=== PATIENT | female | born 1985 | race Caucasian/White ===

== ENCOUNTER 2016-09-16 17:54 | Emergency (ER) | payer MEDICAID ==
[2016-09-16] MEDS ORDERED: Ketorolac 60 MG/2 ML SDV IM ONE (18:25)
--- NOTE | 2016-09-16 18:56 | EDM.PDOC ---
ED HPI GENERAL MEDICAL PROBLEM - General Chief Complaint: Lower Extremity Injury/Pain Stated Complaint: PAIN RT FOOT Time Seen by Provider: 09/16/16 18:00 Source of Information: Reports: Patient History Limitations: Reports: No Limitations - History of Present Illness INITIAL COMMENTS - FREE TEXT/NARRATIVE: History of present illness: [31-year-old female comes in complaining of right ankle pain. Patient has a history of an ORIF and extensive repair to the right lower extremity and indicates that her leg got caught at a desk with a drawer and she heard a snap and now it is quite painful.] Review of systems: As per history of present illness and below otherwise all systems reviewed and negative. Past medical history: As per history of present illness and as reviewed below otherwise noncontributory. Surgical history: As per history of present illness and as reviewed below otherwise noncontributory. Social history: No reported history of drug or alcohol abuse. Family history: As per history of present illness and as reviewed below otherwise noncontributory. Physical exam: HEENT: Atraumatic, normocephalic, pupils reactive, negative for conjunctival pallor or scleral icterus, mucous membranes moist, throat clear, neck supple, nontender, trachea midline. Lungs: Clear to auscultation, breath sounds equal bilaterally, chest nontender. Heart: S1S2, regular, negative for clicks, rubs, or JVD. Abdomen: Soft, nondistended, nontender. Negative for masses or hepatosplenomegaly. Negative for costovertebral tenderness. Pelvis: Stable nontender. Genitourinary: Deferred. Rectal: Deferred. Extremities: Right lower extremity with well-healed incisions and an Bashir wrap with point tenderness about the bilateral malleolus as well as the dorsal aspect of the foot, negative for cords or calf pain. Neurovascular unremarkable. Neuro: Awake, alert, oriented. Cranial nerves II through XII unremarkable. Cerebellum unremarkable. Motor and sensory unremarkable throughout. Exam nonfocal. Diagnostics: [X-ray right ankle] Therapeutics: [Toradol 60 mg IM] Impression: [Acute on chronic trauma to right lower extremity] Plan: [Follow-up with Dr. Singleton and in am] Definitive disposition and diagnosis as appropriate pending reevaluation and review of above. Right Ankle Pain Score (Numeric/FACES): 10 - Related Data Allergies Allergy/AdvReac Type Severity Reaction Status Date / Time butalbital Allergy chest pain Verified 09/16/16 18:11 and SOB tramadol Allergy chest pain Verified 09/16/16 18:11 and SOB watermelon Allergy Hives Verified 09/16/16 18:11 Home Meds: Home Meds Baclofen 10 tbs PO Q8HR 09/22/15 [History] Gabapentin [Neurontin] 300 cap PO Q8HR 09/22/15 [History] oxyCODONE HCl/Acetaminophen [oxyCODONE-Acetaminophen 5-325] 10 mg PO ASDIRECTED PRN 09/22/15 [History] Past Medical History - Past Health History Medical/Surgical History: Denies Medical/Surgical History HEENT History: Reports: None Cardiovascular History: Reports: None Respiratory History: Reports: Asthma Gastrointestinal History: Reports: None Genitourinary History: Reports: None [employer] 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 Musculoskeletal History: Reports: Fracture Neurological History: Reports: None Psychiatric History: Reports: None Endocrine/Metabolic History: Reports: None Hematologic History: Reports: None Oncologic (Cancer) History: Reports: None Dermatologic History: Reports: None - Infectious Disease History Infectious Disease History: Reports: Chicken Pox - Past Surgical History GI Surgical History: Reports: Cholecystectomy Musculoskeletal Surgical History: Reports: Other (See Below) Other Musculoskeletal Surgeries/Procedures:: right ankle surgery Dermatological Surgical History: Reports: Skin Graft Social & Family History - Family History Family Medical History: Noncontributory - Tobacco Use Smoking Status *Q: Never Smoker Second Hand Smoke Exposure: No - Caffeine Use Caffeine Use: Reports: Coffee - Recreational Drug Use Recreational Drug Use: No Review of Systems - Review of Systems Review Of Systems: See Below (History of present illness) ED EXAM, GENERAL - Physical Exam Exam: See Below (The history of present illness) Course - Vital Signs Last Recorded V/S: Last Vital Signs Temp 36.4 C 09/16/16 18:12 Pulse 82 09/16/16 18:12 Resp 16 09/16/16 18:12 BP 120/60 09/16/16 18:12 Pulse Ox 99 09/16/16 18:12 - Orders/Labs/Meds Orders: Active Orders 24 hr Category Date Time Status Ankle Min 3V Rt [CR] Stat Exams 09/16/16 18:25 Taken AMYLASE [CHEM] Stat Lab 09/16/16 20:46 Received COMPREHENSIVE METABOLIC PN,CMP [CHEM] Stat Lab 09/16/16 20:46 Received LIPASE [CHEM] Stat Lab 09/16/16 20:46 Received Sodium Chloride 0.9% [Normal Saline] 1,000 ml Med 09/16/16 20:04 Active IV STAT Medication Orders Sodium Chloride (Normal Saline) 1,000 mls @ 999 mls/hr IV STAT ONE Stop: 09/16/16 21:04 Last Admin: 09/16/16 20:44 Dose: 999 mls/hr Labs: Laboratory Tests 09/16/16 Range/Units 20:46 WBC 8.16 (4.0-11.0) K/uL RBC 4.83 (4.30-5.90) M/uL Hgb 12.0 (12.0-16.0) g/dL Hct 38.0 (36.0-46.0) % MCV 78.7 L (80.0-98.0) fL MCH 24.8 L (27.0-32.0) pg MCHC 31.6 (31.0-37.0) g/dL RDW Std Deviation 44.8 (28.0-62.0) fl RDW Coeff of Delvis 16 H (11.0-15.0) % Plt Count 295 (150-400) K/uL MPV 9.70 (7.40-12.00) fL Neut % (Auto) 51.2 (48.0-80.0) % Lymph % (Auto) 39.3 (16.0-40.0) % [place] % (Auto) 8.1 (0.0-15.0) % Eos % (Auto) 0.9 (0.0-7.0) % Baso % (Auto) 0.5 (0.0-1.5) % Neut # (Auto) 4.2 (1.4-5.7) K/uL Lymph # (Auto) 3.2 H (0.6-2.4) K/uL [place] # (Auto) 0.7 (0.0-0.8) K/uL Eos # (Auto) 0.1 (0.0-0.7) K/uL Baso # (Auto) 0.0 (0.0-0.1) K/uL Nucleated RBC % 0.0 /100WBC Nucleated RBCs # 0 K/uL Meds: Medications Generic Name Dose Route Start Last Admin Trade Name Freq PRN Reason Stop Dose Admin Sodium Chloride 1,000 mls @ 999 mls/hr 09/16/16 20:04 09/16/16 20:44 Normal Saline IV 09/16/16 21:04 999 mls/hr STAT ONE Administration Discontinued Medications Generic Name Dose Route Start Last Admin Trade Name Freq PRN Reason Stop Dose Admin Ketorolac Tromethamine 60 mg 09/16/16 18:25 09/16/16 18:45 Toradol IM 09/16/16 18:26 60 mg ONETIME ONE Administration Ketorolac Tromethamine 30 mg 09/16/16 20:04 09/16/16 20:45 Toradol IVPUSH 09/16/16 20:05 30 mg ONETIME ONE Administration Ondansetron HCl 4 mg 09/16/16 20:04 09/16/16 20:43 Zofran IVPUSH 09/16/16 20:05 4 mg ONETIME ONE Administration Departure - Departure Time of Disposition: 21:01 Disposition: Home, Self-Care 01 Condition: Good Clinical Impression: Chronic wound of extremity, Ankle pain - Discharge Information Forms: ED Department Discharge Additional Instructions: The following information is given to patients seen in the emergency department who are being discharged to home. This information is to outline your options for follow-up care. We provide all patients seen in our emergency department with a follow-up referral. The need for follow-up, as well as the timing and circumstances, are variable depending upon the specifics of your emergency department visit. If you don't have a primary care physician on staff, we will provide you with a referral. We always advise you to contact your personal physician following an emergency department visit to inform them of the circumstance of the visit and for follow-up with them and/or the need for any referrals to a consulting specialist. The emergency department will also refer you to a specialist when appropriate. This referral assures that you have the opportunity for follow-up care with a specialist. All of these measure are taken in an effort to provide you with optimal care, which includes your follow-up. Under all circumstances we always encourage you to contact your private physician who remains a resource for coordinating your care. When calling for follow-up care, please make the office aware that this follow-up is from your recent emergency room visit. If for any reason you are refused follow-up, please contact the [facility] Emergency Department at and asked to speak to the emergency department charge nurse. It is imperative you follow-up with Dr. Singleton to get further in-depth diagnostic and evaluation of your chronic right lower extremity issues You are being provided with a running of pain medication today to hold you over until he can be seen by Dr. Singleton Please return to ED as needed as discussed - My Orders Last 24 Hours: My Active Orders 09/16/16 18:25 Ankle Min 3V Rt [CR] Stat 09/16/16 20:04 Sodium Chloride 0.9% [Normal Saline] 1,000 ml IV STAT 09/16/16 20:46 AMYLASE [CHEM] Stat COMPREHENSIVE METABOLIC PN,CMP [CHEM] Stat LIPASE [CHEM] Stat - Assessment/Plan Last 24 Hours: My Active Orders 09/16/16 18:25 Ankle Min 3V Rt [CR] Stat 09/16/16 20:04 Sodium Chloride 0.9% [Normal Saline] 1,000 ml IV STAT 09/16/16 20:46 AMYLASE [CHEM] Stat COMPREHENSIVE METABOLIC PN,CMP [CHEM] Stat LIPASE [CHEM] Stat
[2016-09-16] MEDS ORDERED: Sodium Chloride 0.9% 1,000 ML IV ONE (20:04)
[2016-09-16] MEDS ORDERED: Ondansetron 4 MG/2 ML SDV IVPUSH ONE (20:04)
[2016-09-16] MEDS ORDERED: Ketorolac 30 MG/ML SDV IVPUSH ONE (20:04)
[2016-09-16 21:19] LABS: CHLORIDE,CL 103 mmol/L (98-110); SODIUM,NA 137 mmol/L (136-146)
[2016-09-16 21:32] VITALS: BP 131/61
--- NOTE | 2016-09-17 08:41 | CR ---
EXAM DATE: 09/16/16 PATIENT'S AGE: 31 Patient: JOSE LUIS GIBSON Facility: [place], [place] Site . Site : 1985 Study: XRay Extremity Right [id number]/7/2017 7:02:45 PM Ordering Physician: Doctor Corey Final Report: Indication: Pain. Technique: Three-view right ankle. Comparison: None. Findings: The patient has a supportive wrap around the distal leg and forefoot. There is a fracture deformity of the distal fibular diaphysis. There is an incompletely healed complex comminuted fracture within the distal tibial metaphysis. There are mixed areas of sclerosis and lucent change which could indicate potential osteomyelitis. On the lateral projection there are lucent holes suggesting a prior surgical screw tracks. The talus and calcaneus appear intact. There is a small plantar calcaneal bone spur. There are changes noted about the medial aspect of the lower leg which may indicate areas of soft tissue ulceration. Impression: Deformity of the distal fibula and tibia consistent with old fractures. Comminuted fragments remain and there are mixed areas of sclerosis and lucent change which could indicate potential osteomyelitis. Patient also appears to have an open wound within the medial soft tissues. Dictated by Jeronimo Oviedo MD @ Sep 16 2016 7:50PM (Electronic Signature) Report Signed by Proxy. LIUDMILA
== END 2016-09-16 21:42 | disposition home or self-care (01) ==
LOC: MW.ED 17:54
DX: M25.572 Pain in left ankle and joints of left foot (principal); J45.909 Unspecified asthma, uncomplicated; Z88.5 Allergy status to narcotic agent; Z91.048 Other nonmedicinal substance allergy status; Z90.49 Acquired absence of other specified parts of digestive tract
CPT/HCPCS: 36415; 73610; 80053; 82150; 83690; 85025; 96361; 96372; 96374; 99284; J1885; J2405; J7040

== ENCOUNTER 2017-07-18 05:01 | Inpatient (IN) | payer MEDICAID ==
[2017-07-18] MEDS ORDERED: Sodium Chloride 0.9% 10 ML Syringe FLUSH PRN (05:21)
[2017-07-18] MEDS ORDERED: Sodium Chloride 0.9% 2.5 ML Syringe FLUSH PRN (05:21)
[2017-07-18] MEDS ORDERED: Tranexamic Acid 1,000 MG in Sodium Chloride 0.9% 100 ML IV PRN (05:21)
[2017-07-18] MEDS ORDERED: Lidocaine 1% 50 ML MDV INJECT PRN (05:21)
[2017-07-18] MEDS ORDERED: Methylergonovine 0.2 MG/1 ML Amp IM PRN (05:21)
[2017-07-18] MEDS ORDERED: Carboprost Tromethamine 250 MCG/1 ML Amp IM PRN (05:21)
[2017-07-18] MEDS ORDERED: Nalbuphine 10 MG/1 ML Vial IVPUSH PRN (05:21)
[2017-07-18] MEDS ORDERED: Water For Irrigation,Sterile 1,000 ML Container IRR PRN (05:21)
[2017-07-18] MEDS ORDERED: Misoprostol 200 MCG Tab PO PRN (05:21)
[2017-07-18] MEDS ORDERED: Terbutaline 1 MG/ML SDV SUBCUT PRN (05:24)
[2017-07-18] MEDS ORDERED: Oxytocin/0.9 % Sodium Chloride 30 UNIT/500 ML BAG IV SCH (05:30)
[2017-07-18] MEDS: Lactated Ringers 1,000 ML IV SCH ×3 (06:30→21:30)
--- NOTE | 2017-07-18 11:11 | PCM.LDHP ---
L&D History of Present Illness - General Date of Service: 07/18/17 Admit Problem/Dx: Patient Status Order with Admit Dx/Problem 07/18/17 05:21 Patient Status [ADT] Routine Admission Diagnosis/Problem Admission Diagnosis/Problem 07/18/17 11:05 32yo EDC 07/25/2017 39 0/7wks, B+, RE, GBS neg. Elective IOL 07/18/17 11:07 Source of Information: Patient History Limitations: Reports: No Limitations - History of Present Illness Improves with: Reports: None Worsens with: Reports: None Associated Symptoms: Reports: N - Related Data Allergies/Adverse Reactions: Allergies Allergy/AdvReac Type Severity Reaction Status Date / Time butalbital Allergy chest pain Verified 06/29/17 14:40 and SOB tramadol Allergy chest pain Verified 06/29/17 14:40 and SOB watermelon Allergy Hives Verified 06/29/17 14:40 Home Medications: Home Meds PNV95/Ferrous Fumarate/FA [ Tablet] 1 tab PO DAILY 05/25/17 [History] Acetaminophen [Tylenol] 325 mg PO Q4H PRN 06/29/17 [History] Past Medical History - Past Health History Medical/Surgical History: Denies Medical/Surgical History HEENT History: Reports: None Cardiovascular History: Reports: None Respiratory History: Reports: Asthma Gastrointestinal History: Reports: Cholelithiasis Genitourinary History: Reports: None 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: Musculoskeletal History: Reports: Fracture Neurological History: Reports: Concussion, Migraines Psychiatric History: Reports: Anxiety, Depression Endocrine/Metabolic History: Reports: Obesity/BMI 30+ Hematologic History: Reports: None Immunologic History: Reports: None Oncologic (Cancer) History: Reports: None Dermatologic History: Reports: None - Infectious Disease History Infectious Disease History: Reports: Chicken Pox - Past Surgical History GI Surgical History: Reports: Cholecystectomy Musculoskeletal Surgical History: Reports: ORIF, Other (See Below) Other Musculoskeletal Surgeries/Procedures:: right ankle surgery Dermatological Surgical History: Reports: Skin Graft Social & Family History - Family History Family Medical History: Noncontributory HEENT: Reports: Other (See Below) Other HEENT Family History: grandmother had surgery on eye for unkown reason Cardiac: Reports: High Cholesterol, Hypertension Respiratory: Reports: None GI: Reports: None : Reports: None OBGYN: Reports: Ectopic , Musculoskeletal: Reports: Arthritis, Fibromyalgia Neurological: Reports: Alzheimers Disease, Migraines Psychiatric: Reports: None Endocrine/Metabolic: Reports: Diabetes, Type I Hematologic: Reports: None Immunologic: Reports: None Dermatologic: Reports: None Oncologic: Reports: Cervix - Tobacco Use Smoking Status *Q: Never Smoker Second Hand Smoke Exposure: Yes - Caffeine Use Caffeine Use: Reports: None - Recreational Drug Use Recreational Drug Use: No H&P Review of Systems - Review of Systems: Review Of Systems: See Below General: Reports: No Symptoms HEENT: Reports: No Symptoms Pulmonary: Reports: No Symptoms Cardiovascular: Reports: No Symptoms Gastrointestinal: Reports: No Symptoms Genitourinary: Reports: No Symptoms Musculoskeletal: Reports: No Symptoms Skin: Reports: No Symptoms Psychiatric: Reports: No Symptoms Neurological: Reports: No Symptoms Hematologic/Lymphatic: Reports: No Symptoms Immunologic: Reports: No Symptoms L&D Exam - Exam Exam: See Below - Vital Signs Weight: 127.006 kg - OB Specific Contraction Intensity: Mild to Moderate Movement: Active Heart Tones: Present Heart Tones per Min: 125 Heart Rate (FHR) Variability: Moderate (6-25 bmp) Presentation: Vertex - Shepard Score Shepard Score Cervix Position: Midposition Shepard Score Consistency: Soft Shepard Score Effacement: 51-70% Shepard Score Dilation: 3-4 cm Shepard Score 's Station: -2 Shepard Score Total: 8 - Exam General: Alert, Oriented HEENT: Hearing Intact Lungs: Clear to Auscultation, Normal Respiratory Effort Cardiovascular: Regular Rate, Regular Rhythm, Normal S1, Normal S2 GI/Abdominal Exam: Normal Bowel Sounds, Soft, Non-Tender, No Organomegaly, No Distention, No Abnormal Bruit, No Mass, Pelvis Stable Rectal Exam: Deferred Genitourinary: Cervical dilitation Back Exam: Normal Inspection, Full Range of Motion Extremities: Normal Inspection, Normal Range of Motion, Non-Tender, No Pedal Edema, Normal Capillary Refill Skin: Warm, Dry, Intact Neurological: Cranial Nerves Intact, Reflexes Equal Bilateral, Strength Equal Bilateral, Normal Gait, Normal Speech, Normal Tone Psychiatric: Alert, Normal Affect, Normal Mood - Patient Data Lab Results Last 24 hrs: Laboratory Results - last 24 hr 07/18/17 07/18/17 Range/Units 06:09 06:09 WBC 8.58 (4.0-11.0) K/uL RBC 4.42 (4.30-5.90) M/uL Hgb 10.3 L (12.0-16.0) g/dL Hct 31.8 L (36.0-46.0) % MCV 71.9 L (80.0-98.0) fL MCH 23.3 L (27.0-32.0) pg MCHC 32.4 (31.0-37.0) g/dL RDW Std Deviation 39.5 (28.0-62.0) fl RDW Coeff of Delvis 15 (11.0-15.0) % Plt Count 273 (150-400) K/uL MPV 10.10 (7.40-12.00) fL Nucleated RBC % 0.0 /100WBC Nucleated RBCs # 0 K/uL Blood Type B POSITIVE Antibody Screen NEGATIVE Result Diagrams: 07/18/17 06:09 - Problem List (1) Supervision of normal IUP (intrauterine ) in multigravida SNOMED Code(s): 072088016, 270886526, 109717022 ICD Code: Z34.80 - ENCOUNTER FOR SUPRVSN OF NORMAL , UNSP TRIMESTER Status: Acute Current Visit: Yes Qualifiers: Trimester: third trimester Qualified Code(s): Z34.83 - Encounter for supervision of other normal , third trimester Problem List Initiated/Reviewed/Updated: Yes Orders Last 24hrs: Active Orders 24 hr Category Date Time Status Patient Status [ADT] Routine ADT 07/18/17 05:21 Active Bedrest Bathroom Privileges [RC] ASDIRECTED Care 07/18/17 05:25 Active Communication Order [RC] ASDIRECTED Care 07/18/17 05:25 Active Communication Order [RC] ASDIRECTED Care 07/18/17 05:25 Active Heart Tones [RC] CONTINUOUS Care 07/18/17 05:21 Active Non Stress Test [RC] PER UNIT ROUTINE Care 07/18/17 05:21 Active May Shower [RC] ASDIRECTED Care 07/18/17 05:21 Active Notify Provider [RC] PRN Care 07/18/17 05:21 Active Notify Provider [RC] PRN Care 07/18/17 05:25 Active Notify Provider [RC] STAT Care 07/18/17 05:25 Active Oxygen Therapy [RC] ASDIRECTED Care 07/18/17 05:25 Active Up ad Leatha [RC] ASDIRECTED Care 07/18/17 05:21 Active Vaginal Exam [RC] PRN Care 07/18/17 05:21 Active Vaginal Exam [RC] PRN Care 07/18/17 05:25 Active Vital Signs [RC] PER UNIT ROUTINE Care 07/18/17 05:21 Active Vital Signs [RC] PER UNIT ROUTINE Care 07/18/17 05:25 Active Regular Diet [DIET] Diet 07/18/17 Breakfast Active Carboprost Tromethamine [Hemabate DS] Med 07/18/17 05:21 Active 250 mcg IM ASDIRECTED PRN Lactated Ringers [Ringers, Lactated] 1,000 ml Med 07/18/17 05:30 Active IV ASDIRECTED Lidocaine 1% [Xylocaine 1%] Med 07/18/17 05:21 Active 50 ml INJECT .ONCE PRN Methylergonovine [Methergine] Med 07/18/17 05:21 Active 0.2 mg IM ASDIRECTED PRN Misoprostol [Cytotec] Med 07/18/17 05:21 Active 200 mcg PO .ONCE PRN Nalbuphine [Nubain] Med 07/18/17 05:21 Active 10 mg IVPUSH Q1H PRN Oxytocin/0.9 % Sodium Chloride [Oxytocin 30 Unit/500 ML Med 07/18/17 05:30 Active -NS] 30 unit in 500 ml IV TITRATE Sodium Chloride 0.9% [Saline Flush] Med 07/18/17 05:21 Active 10 ml FLUSH ASDIRECTED PRN Sodium Chloride 0.9% [Saline Flush] Med 07/18/17 05:21 Active 2.5 ml FLUSH ASDIRECTED PRN Terbutaline [Brethine] Med 07/18/17 05:24 Active 0.25 mg SUBCUT ASDIRECTED PRN Tranexamic Acid [Cyklokapron] 1,000 mg Med 07/18/17 05:21 Active Sodium Chloride 0.9% [Normal Saline] 100 ml IV ONETIME Water For Irrigation,Sterile [Sterile Water for Med 07/18/17 05:21 Active Irrigation] 1,000 ml IRR ASDIRECTED PRN Scalp Electrode [WOMSER] Per Unit Routine Oth 07/18/17 05:21 Ordered Medication Administration Instruction [OM.PC] Q3H Oth 07/18/17 05:30 Ordered Peripheral IV Insertion Adult [OM.PC] Routine Oth 07/18/17 05:21 Ordered Resuscitation Status Routine Resus Stat 07/18/17 05:21 Ordered Medication Orders Carboprost Tromethamine (Hemabate Ds) 250 mcg IM ASDIRECTED PRN PRN Reason: Post Hemorrhage Lactated Ringer's (Ringers, Lactated) 1,000 mls @ 150 mls/hr IV ASDIRECTED RONNY Last Admin: 07/18/17 06:30 Dose: 150 mls/hr Tranexamic Acid 1,000 mg/ (Sodium Chloride) 110 mls @ 660 mls/hr IV ONETIME PRN PRN Reason: Bleeding Oxytocin/Sodium Chloride (Oxytocin 30 Unit/500 Ml-Ns) 30 unit in 500 mls @ 2 mls/hr IV TITRATE RONNY; Protocol Last Titration: 07/18/17 08:10 Dose: 6 munits/min, 6 mls/hr Titration: 07/18/17 07:42 Dose: 4 munits/min, 4 mls/hr Admin: 07/18/17 06:51 Dose: 2 munits/min, 2 mls/hr Lidocaine HCl (Xylocaine 1%) 50 ml INJECT .ONCE PRN PRN Reason: Laceration repair Methylergonovine Maleate (Methergine) 0.2 mg IM ASDIRECTED PRN PRN Reason: Post Hemorrhage Misoprostol (Cytotec) 200 mcg PO .ONCE PRN PRN Reason: Post Hemorrhage Nalbuphine HCl (Nubain) 10 mg IVPUSH Q1H PRN PRN Reason: Pain (severe 7-10) Sodium Chloride (Saline Flush) 10 ml FLUSH ASDIRECTED PRN PRN Reason: Keep Vein Open Sodium Chloride (Saline Flush) 2.5 ml FLUSH ASDIRECTED PRN PRN Reason: Keep Vein Open Sterile Water (Sterile Water For Irrigation) 1,000 ml IRR ASDIRECTED PRN PRN Reason: delivery Terbutaline Sulfate (Brethine) 0.25 mg SUBCUT ASDIRECTED PRN PRN Reason: Tacysystole Assessment/Plan Comment:: IOL A: 32yo EDC 07/25/2017 39 0/7wks, B+, RE, GBS neg. Elective IOL P: Admit, pain mngt prn, anticipate
[2017-07-18] MEDS: Nalbuphine 10 MG/ML 10 ML MDV ONE (11:51)
[2017-07-18] MEDS ORDERED: Ondansetron 4 MG/2 ML SDV IVPUSH ONE (16:59)
[2017-07-18] MEDS ORDERED: Ranitidine 15 MG/ML Syrup 10 ML UD Cup PO ONE (17:00)
[2017-07-18] MEDS ORDERED: fentaNYL 100 MCG/2 ML SDV ONE (20:10)
--- NOTE | 2017-07-18 21:03 | PCM.PREANE ---
Preanesthetic Assessment - Anesthesia/Transfusion/Family Hx Anesthesia History: Prior Anesthesia Without Reaction Family History of Anesthesia Reaction: No Transfusion History: No Prior Transfusion(s) - Review of Systems General: No Symptoms Pulmonary: No Symptoms Cardiovascular: No Symptoms Gastrointestinal: No Symptoms Neurological: No Symptoms Other: Reports: None (Denies any personal or family hx of bleeding or clotting problems) - Physical Assessment Height: 1.6 m Weight: 127.006 kg ASA Class: 2 Mental Status: Alert & Oriented x3 Airway Class: Mallampati = 3 Dentition: Reports: Normal Dentition ROM/Head Extension: Full - Lab Values: Laboratory Last Values WBC 8.58 K/uL (4.0-11.0) 07/18/17 06:09 RBC 4.42 M/uL (4.30-5.90) 07/18/17 06:09 Hgb 10.3 g/dL (12.0-16.0) L 07/18/17 06:09 Hct 31.8 % (36.0-46.0) L 07/18/17 06:09 MCV 71.9 fL (80.0-98.0) L 07/18/17 06:09 MCH 23.3 pg (27.0-32.0) L 07/18/17 06:09 MCHC 32.4 g/dL (31.0-37.0) 07/18/17 06:09 RDW Std Deviation 39.5 fl (28.0-62.0) 07/18/17 06:09 RDW Coeff of Delvis 15 % (11.0-15.0) 07/18/17 06:09 Plt Count 273 K/uL (150-400) 07/18/17 06:09 MPV 10.10 fL (7.40-12.00) 07/18/17 06:09 Nucleated RBC % 0.0 /100WBC 07/18/17 06:09 Nucleated RBCs # 0 K/uL 07/18/17 06:09 Blood Type B POSITIVE 07/18/17 06:09 Antibody Screen NEGATIVE 07/18/17 06:09 - Allergies Allergies/Adverse Reactions: Allergies Allergy/AdvReac Type Severity Reaction Status Date / Time butalbital Allergy chest pain Verified 06/29/17 14:40 and SOB tramadol Allergy chest pain Verified 06/29/17 14:40 and SOB watermelon Allergy Hives Verified 06/29/17 14:40 - Acknowledgements Anesthesia Type Planned: Epidural Pt an Appropriate Candidate for the Planned Anesthesia: Yes Alternatives and Risks of Anesthesia Discussed w Pt/Guardian: Yes Pt/Guardian Understands and Agrees with Anesthesia Plan: Yes PreAnesthesia Questionnaire - Past Health History Medical/Surgical History: Denies Medical/Surgical History HEENT History: Reports: None Cardiovascular History: Reports: None Respiratory History: Reports: Asthma (Has not used inhaler since prior to ) Gastrointestinal History: Reports: Cholelithiasis Genitourinary History: Reports: None RIGGER History: Reports: Musculoskeletal History: Reports: Fracture Neurological History: Reports: Concussion, Migraines Psychiatric History: Reports: Anxiety, Depression Endocrine/Metabolic History: Reports: Obesity/BMI 30+ Hematologic History: Reports: None Immunologic History: Reports: None Oncologic (Cancer) History: Reports: None Dermatologic History: Reports: None - Infectious Disease History Infectious Disease History: Reports: Chicken Pox - Past Surgical History GI Surgical History: Reports: Cholecystectomy Musculoskeletal Surgical History: Reports: ORIF, Other (See Below) Other Musculoskeletal Surgeries/Procedures:: right ankle surgery Dermatological Surgical History: Reports: Skin Graft - SUBSTANCE USE Smoking Status *Q: Never Smoker Second Hand Smoke Exposure: Yes Recreational Drug Use History: No - HOME MEDS Home Medications: Home Meds PNV95/Ferrous Fumarate/FA [ Tablet] 1 tab PO DAILY 05/25/17 [History] Acetaminophen [Tylenol] 325 mg PO Q4H PRN 06/29/17 [History] - CURRENT (IN HOUSE) MEDS Current Meds: Current Medications Carboprost Tromethamine (Hemabate Ds) 250 mcg IM ASDIRECTED PRN PRN Reason: Post Hemorrhage Lactated Ringer's (Ringers, Lactated) 1,000 mls @ 150 mls/hr IV ASDIRECTED RONNY Last Admin: 07/18/17 19:38 Dose: 150 mls/hr Tranexamic Acid 1,000 mg/ (Sodium Chloride) 110 mls @ 660 mls/hr IV ONETIME PRN PRN Reason: Bleeding Oxytocin/Sodium Chloride (Oxytocin 30 Unit/500 Ml-Ns) 30 unit in 500 mls @ 2 mls/hr IV TITRATE RONNY; Protocol Last Titration: 07/18/17 13:58 Dose: 20 munits/min, 20 mls/hr Lidocaine HCl (Xylocaine 1%) 50 ml INJECT .ONCE PRN PRN Reason: Laceration repair Methylergonovine Maleate (Methergine) 0.2 mg IM ASDIRECTED PRN PRN Reason: Post Hemorrhage Misoprostol (Cytotec) 200 mcg PO .ONCE PRN PRN Reason: Post Hemorrhage Nalbuphine HCl (Nubain) 10 mg IVPUSH Q1H PRN PRN Reason: Pain (severe 7-10) Last Admin: 07/18/17 14:30 Dose: 10 mg Sodium Chloride (Saline Flush) 10 ml FLUSH ASDIRECTED PRN PRN Reason: Keep Vein Open Sodium Chloride (Saline Flush) 2.5 ml FLUSH ASDIRECTED PRN PRN Reason: Keep Vein Open Sterile Water (Sterile Water For Irrigation) 1,000 ml IRR ASDIRECTED PRN PRN Reason: delivery Terbutaline Sulfate (Brethine) 0.25 mg SUBCUT ASDIRECTED PRN PRN Reason: Tacysystole Discontinued Medications Fentanyl (Sublimaze) Confirm Administered Dose 100 mcg .ROUTE .STK-MED ONE Stop: 07/18/17 20:11 Fentanyl/Bupivacaine HCl (Frasuage-Xeojs-Js 2 Mcg/Ml-0.125%) Confirm Administered Dose 100 mls @ as directed EP .STK-MED ONE Stop: 07/18/17 20:10 Nalbuphine HCl (Nubain) Confirm Administered Dose 100 mg .ROUTE .STK-MED ONE Stop: 07/18/17 11:48 Last Admin: 07/18/17 11:51 Dose: 10 mg Ondansetron HCl (Zofran) 4 mg IVPUSH ONETIME ONE Stop: 07/18/17 17:00 Last Admin: 07/18/17 17:37 Dose: 4 mg Ranitidine HCl (Zantac) 150 mg PO ONETIME ONE Stop: 07/18/17 17:01 Last Admin: 07/18/17 17:48 Dose: 150 mg
[2017-07-19] MEDS ORDERED: fentaNYL 100 MCG/2 ML SDV ONE ×2 (03:22→07:51)
[2017-07-19] MEDS ORDERED: Bupivacaine 0.5% 10 ML SDV ONE ×2 (03:22→07:51)
[2017-07-19] MEDS: Lactated Ringers 1,000 ML IV SCH (07:41)
--- NOTE | 2017-07-19 11:22 | PCM.DEL ---
L & D Note - General Info Date of Service: 07/19/17 Mother's Due Date: 07/25/17 - Delivery Note Labor: Augmented by ARM, Induced by Oxytocin Cervical Ripening Method: Misoprostil Delivery Outcome: Livebirth Delivery Method: Spontaneous Vaginal Delivery-Single Presentation: Left Occiput Anterior (NISHANT) Nuchal Cord: None Prep: Other Anesthesia Type: Epidural Amniotic Fluid Description: Bloody Episiotomy Type: None Laceration: None Placenta: Intact, Spontaneous Cord: 3 Vessels Resuscitation Needed: No [place]: Suctioned, Stimulated, [place] Used Score 1 min: 8 Score 5 min: 9 Second Stage Interventions: Reports: Pushing Effectively, Pushing, McRobert's Position - General Info Date of Service: 07/19/17 - Patient Data Weight - Most Recent: 127.006 kg Med Orders - Current: Current Medications Carboprost Tromethamine (Hemabate Ds) 250 mcg IM ASDIRECTED PRN PRN Reason: Post Hemorrhage Lactated Ringer's (Ringers, Lactated) 1,000 mls @ 150 mls/hr IV ASDIRECTED RONNY Last Admin: 07/19/17 07:41 Dose: 150 mls/hr Tranexamic Acid 1,000 mg/ (Sodium Chloride) 110 mls @ 660 mls/hr IV ONETIME PRN PRN Reason: Bleeding Oxytocin/Sodium Chloride (Oxytocin 30 Unit/500 Ml-Ns) 30 unit in 500 mls @ 2 mls/hr IV TITRATE RONNY; Protocol Last Titration: 07/19/17 10:33 Dose: 12 munits/min, 12 mls/hr Lidocaine HCl (Xylocaine 1%) 50 ml INJECT .ONCE PRN PRN Reason: Laceration repair Methylergonovine Maleate (Methergine) 0.2 mg IM ASDIRECTED PRN PRN Reason: Post Hemorrhage Misoprostol (Cytotec) 200 mcg PO .ONCE PRN PRN Reason: Post Hemorrhage Nalbuphine HCl (Nubain) 10 mg IVPUSH Q1H PRN PRN Reason: Pain (severe 7-10) Last Admin: 07/18/17 14:30 Dose: 10 mg Sodium Chloride (Saline Flush) 10 ml FLUSH ASDIRECTED PRN PRN Reason: Keep Vein Open Sodium Chloride (Saline Flush) 2.5 ml FLUSH ASDIRECTED PRN PRN Reason: Keep Vein Open Sterile Water (Sterile Water For Irrigation) 1,000 ml IRR ASDIRECTED PRN PRN Reason: delivery Terbutaline Sulfate (Brethine) 0.25 mg SUBCUT ASDIRECTED PRN PRN Reason: Tacysystole Discontinued Medications Bupivacaine HCl (Sensorcaine-Mpf 0.5%) Confirm Administered Dose 10 ml .ROUTE .STK-MED ONE Stop: 07/19/17 03:23 Bupivacaine HCl (Sensorcaine-Mpf 0.5%) Confirm Administered Dose 10 ml .ROUTE .STK-MED ONE Stop: 07/19/17 07:52 Fentanyl (Sublimaze) Confirm Administered Dose 100 mcg .ROUTE .STK-MED ONE Stop: 07/18/17 20:11 Fentanyl (Sublimaze) Confirm Administered Dose 100 mcg .ROUTE .STK-MED ONE Stop: 07/19/17 03:23 Fentanyl (Sublimaze) Confirm Administered Dose 100 mcg .ROUTE .STK-MED ONE Stop: 07/19/17 07:52 Fentanyl/Bupivacaine HCl (Mpntkaar-Hhdzg-Mb 2 Mcg/Ml-0.125%) Confirm Administered Dose 100 mls @ as directed EP .STK-MED ONE Stop: 07/18/17 20:10 Fentanyl/Bupivacaine HCl (Lwyictur-Nccbk-Ey 2 Mcg/Ml-0.125%) Confirm Administered Dose 100 mls @ as directed EP .STK-MED ONE Stop: 07/19/17 03:22 Nalbuphine HCl (Nubain) Confirm Administered Dose 100 mg .ROUTE .STK-MED ONE Stop: 07/18/17 11:48 Last Admin: 07/18/17 11:51 Dose: 10 mg Ondansetron HCl (Zofran) 4 mg IVPUSH ONETIME ONE Stop: 07/18/17 17:00 Last Admin: 07/18/17 17:37 Dose: 4 mg Ranitidine HCl (Zantac) 150 mg PO ONETIME ONE Stop: 07/18/17 17:01 Last Admin: 07/18/17 17:48 Dose: 150 mg - Problem List Review Problem List Initiated/Reviewed/Updated: Yes - Plan Plan:: IOL A: 32yo EDC 07/25/2017 39 0/7wks, B+, RE, GBS neg. Elective IOL P: Admit, pain mngt prn, anticipate
[2017-07-19] MEDS ORDERED: Docusate Sodium 100 MG Cap PO PRN (11:25)
[2017-07-19] MEDS ORDERED: Ibuprofen 400 MG Tab PO PRN (11:25)
[2017-07-19] MEDS ORDERED: Benzocaine/Menthol 20%-0.5% Spray 78 GM Cannister TOP PRN (11:25)
[2017-07-19] MEDS ORDERED: Acetaminophen 500 MG Tab PO PRN (11:25)
[2017-07-19] MEDS ORDERED: Lanolin 100% Cream 7 GM Tube TOP PRN (11:25)
[2017-07-19] MEDS ORDERED: Bisacodyl 10 MG Supp RECTAL PRN (11:25)
[2017-07-19] MEDS ORDERED: oxyCODONE 5 MG Tab PO PRN (11:25)
[2017-07-19] MEDS ORDERED: Witch Hazel Medicated Pads 40/Jar TOP PRN (11:25)
[2017-07-19] MEDS: Acetaminophen 500 MG Tab PO PRN (13:33)
--- NOTE | 2017-07-19 15:42 | PCM48HPAN ---
Post Anesthesia Note - EVALUATION WITHIN 48HRS OF ANESTHETIC Vital Signs in Normal Range: Yes Patient Participated in Evaluation: Yes Respiratory Function Stable: Yes Airway Patent: Yes Cardiovascular Function Stable: Yes Hydration Status Stable: Yes Pain Control Satisfactory: Yes Nausea and Vomiting Control Satisfactory: Yes Mental Status Recovered: Yes
[2017-07-19] MEDS: Ibuprofen 800 MG Tab PO PRN (18:16)
[2017-07-20] MEDS: Ibuprofen 800 MG Tab PO PRN ×2 (01:24→08:22)
[2017-07-20] MEDS: Acetaminophen 500 MG Tab PO PRN ×2 (04:48→12:03)
[2017-07-20] MEDS ORDERED: Prenatal Multivitamin and Multimineral with Iron Tab PO SCH (09:00)
--- NOTE | 2017-07-20 09:00 | PCM.PNPP ---
- General Info Date of Service: 07/20/17 Functional Status: Reports: Pain Controlled, Tolerating Diet, Ambulating, Urinating - Review of Systems General: Reports: No Symptoms HEENT: Reports: No Symptoms Pulmonary: Reports: No Symptoms Cardiovascular: Reports: No Symptoms Gastrointestinal: Reports: No Symptoms Genitourinary: Reports: No Symptoms Musculoskeletal: Reports: No Symptoms Skin: Reports: No Symptoms Neurological: Reports: No Symptoms Psychiatric: Reports: No Symptoms - Patient Data Vital Signs - Most Recent: Last Vital Signs Temp 36.9 C 07/20/17 04:59 Pulse 75 07/20/17 04:59 Resp 18 07/20/17 04:59 BP 142/80 H 07/20/17 04:59 Pulse Ox 99 07/20/17 04:59 Weight - Most Recent: 127.006 kg Lab Results - Last 24 Hours: Laboratory Results - last 24 hr 07/19/17 07/19/17 07/20/17 Range/Units 11:05 11:05 06:08 Hgb 7.7 L (12.0-16.0) g/dL Hct 24.5 L (36.0-46.0) % Cord ABG pH 7.119 L (7.18-7.38) Cord ABG Base Excess -13 L (-10--2) Cord VBG pH 7.160 L (7.25-7.45) Cord VBG Base Excess -11 L (-10--2) Med Orders - Current: Current Medications Acetaminophen (Tylenol Extra Strength) 500 mg PO Q4H PRN PRN Reason: Pain Acetaminophen (Tylenol Extra Strength) 1,000 mg PO Q4H PRN PRN Reason: Pain Last Admin: 07/20/17 04:48 Dose: 1,000 mg Benzocaine/Menthol (Dermoplast Pain Relief 20%-0.5% [place]) 78 gm TOP ASDIRECTED PRN PRN Reason: Perineal Comfort Measure Last Admin: 07/19/17 13:34 Dose: 78 gm Bisacodyl (Dulcolax) 10 mg RECTAL .ONCE PRN PRN Reason: Constipation Docusate Sodium (Colace) 100 mg PO BID PRN PRN Reason: Constipation Last Admin: 07/20/17 08:22 Dose: 100 mg Emollient Ointment (Lansinoh Hpa) 0 gm TOP ASDIRECTED PRN PRN Reason: Sore Nipples Last Admin: 07/19/17 12:51 Dose: 7 gm Ibuprofen (Motrin) 400 mg PO Q4H PRN PRN Reason: Pain Ibuprofen (Motrin) 800 mg PO Q6H PRN PRN Reason: Pain Last Admin: 07/20/17 08:22 Dose: 800 mg Oxycodone HCl (Oxycodone) 5 mg PO Q2H PRN PRN Reason: Pain Prenat Multivit/Roll Inspector/Iron/Folic Ac ( Mtr) 1 each PO DAILY RONNY Last Admin: 07/20/17 08:22 Dose: 1 each Witch Gely (Tucks) 1 pad TOP ASDIRECTED PRN PRN Reason: comfort care Last Admin: 07/19/17 13:35 Dose: 1 pad Discontinued Medications Bupivacaine HCl (Sensorcaine-Mpf 0.5%) Confirm Administered Dose 10 ml .ROUTE .STK-MED ONE Stop: 07/19/17 03:23 Bupivacaine HCl (Sensorcaine-Mpf 0.5%) Confirm Administered Dose 10 ml .ROUTE .STK-MED ONE Stop: 07/19/17 07:52 Carboprost Tromethamine (Hemabate Ds) 250 mcg IM ASDIRECTED PRN PRN Reason: Post Hemorrhage Fentanyl (Sublimaze) Confirm Administered Dose 100 mcg .ROUTE .STK-MED ONE Stop: 07/18/17 20:11 Fentanyl (Sublimaze) Confirm Administered Dose 100 mcg .ROUTE .STK-MED ONE Stop: 07/19/17 03:23 Fentanyl (Sublimaze) Confirm Administered Dose 100 mcg .ROUTE .STK-MED ONE Stop: 07/19/17 07:52 Lactated Ringer's (Ringers, Lactated) 1,000 mls @ 150 mls/hr IV ASDIRECTED RONNY Last Admin: 07/19/17 07:41 Dose: 150 mls/hr Tranexamic Acid 1,000 mg/ (Sodium Chloride) 110 mls @ 660 mls/hr IV ONETIME PRN PRN Reason: Bleeding Oxytocin/Sodium Chloride (Oxytocin 30 Unit/500 Ml-Ns) 30 unit in 500 mls @ 2 mls/hr IV TITRATE RONNY; Protocol Last Titration: 07/19/17 11:05 Dose: 500 munits/min, 500 mls/hr Fentanyl/Bupivacaine HCl (Bszbesjp-Rvrpt-Si 2 Mcg/Ml-0.125%) Confirm Administered Dose 100 mls @ as directed EP .STK-MED ONE Stop: 07/18/17 20:10 Fentanyl/Bupivacaine HCl (Fhqjusui-Qvgvd-Pa 2 Mcg/Ml-0.125%) Confirm Administered Dose 100 mls @ as directed EP .STK-MED ONE Stop: 07/19/17 03:22 Lidocaine HCl (Xylocaine 1%) 50 ml INJECT .ONCE PRN PRN Reason: Laceration repair Methylergonovine Maleate (Methergine) 0.2 mg IM ASDIRECTED PRN PRN Reason: Post Hemorrhage Misoprostol (Cytotec) 200 mcg PO .ONCE PRN PRN Reason: Post Hemorrhage Nalbuphine HCl (Nubain) 10 mg IVPUSH Q1H PRN PRN Reason: Pain (severe 7-10) Last Admin: 07/18/17 14:30 Dose: 10 mg Nalbuphine HCl (Nubain) Confirm Administered Dose 100 mg .ROUTE .STK-MED ONE Stop: 07/18/17 11:48 Last Admin: 07/18/17 11:51 Dose: 10 mg Ondansetron HCl (Zofran) 4 mg IVPUSH ONETIME ONE Stop: 07/18/17 17:00 Last Admin: 07/18/17 17:37 Dose: 4 mg Ranitidine HCl (Zantac) 150 mg PO ONETIME ONE Stop: 07/18/17 17:01 Last Admin: 07/18/17 17:48 Dose: 150 mg Sodium Chloride (Saline Flush) 10 ml FLUSH ASDIRECTED PRN PRN Reason: Keep Vein Open Sodium Chloride (Saline Flush) 2.5 ml FLUSH ASDIRECTED PRN PRN Reason: Keep Vein Open Sterile Water (Sterile Water For Irrigation) 1,000 ml IRR ASDIRECTED PRN PRN Reason: delivery Last Admin: 07/19/17 11:00 Dose: 1,000 ml Terbutaline Sulfate (Brethine) 0.25 mg SUBCUT ASDIRECTED PRN PRN Reason: Tacysystole - Interaction Disposition, : [place] in Room with Family Interaction: Holding Infant Infant Feeding: Encouraged to Breastfeed Support Person: Significant Other - Recovery Exam Fundal Tone: Firm Fundal Level: 1 Fingerbreadths Above Umbilicus Fundal Placement: Midline Lochia Amount: Small Lochia Color: Rubra/Red Perineum Description: Intact, Minimal Bruising/Swelling Episiotomy/Laceration: None Bladder Status: Voiding Urinary Elimination: Voided - Exam General: Alert, Oriented HEENT: Pupils Equal Neck: Supple Lungs: Normal Respiratory Effort GI/Abdominal Exam: Soft, Non-Tender, No Organomegaly, No Distention, No Mass Extremities: Normal Inspection, Normal Range of Motion, Non-Tender, Normal Capillary Refill. No: No Pedal Edema (1+ bilateral, improving, right ankle wrapped) Skin: Warm, Dry, Intact Neurological: No New Focal Deficit Psy/Mental Status: Alert, Normal Affect, Normal Mood - Problem List & Annotations (1) Vaginal delivery SNOMED Code(s): 951473237 Code(s): O80 - ENCOUNTER FOR FULL-TERM UNCOMPLICATED DELIVERY Status: Acute Current Visit: Yes (2) Anemia, due to inadequate iron intake SNOMED Code(s): 799259458 Code(s): D50.8 - OTHER IRON DEFICIENCY ANEMIAS Status: Acute Current Visit: Yes - Problem List Review Problem List Initiated/Reviewed/Updated: Yes - My Orders Last 24 Hours: My Active Orders 07/19/17 11:25 Acetaminophen [Tylenol Extra Strength] 1,000 mg PO Q4H PRN Acetaminophen [Tylenol Extra Strength] 500 mg PO Q4H PRN Benzocaine/Menthol [Dermoplast Pain Relief 20%-0.5% [place]] 78 gm TOP ASDIRECTED PRN Bisacodyl [Dulcolax] 10 mg RECTAL .ONCE PRN Docusate Sodium [Colace] 100 mg PO BID PRN Ibuprofen [Motrin] 400 mg PO Q4H PRN Ibuprofen [Motrin] 800 mg PO Q6H PRN Lanolin [Lansinoh HPA] See Dose Instructions TOP ASDIRECTED PRN Witch Gely [Tucks] 1 pad TOP ASDIRECTED PRN oxyCODONE 5 mg PO Q2H PRN Resuscitation Status Routine 07/19/17 11:26 Patient Status [ADT] Routine May Shower [RC] ASDIRECTED Up ad [place] [RC] ASDIRECTED Vital Signs [RC] PER UNIT ROUTINE Assess Lochia [WOMSER] Per Unit Routine Assess Uterine Involution [WOMSER] Per Unit Routine Perineal Care [OM.PC] Per Unit Routine Peripheral IV Discontinue [OM.PC] Routine 07/19/17 Dinner Regular Diet [DIET] 07/20/17 09:00 Vit/FA/Fe Fumarate/Se [ MTR] 1 each PO DAILY - Assessment Assessment:: PPD#1 after , stable, minimal lochia. She is , has good support of her partner. Baby is going to have frenulum of tongue clipped today , would like to be discharged after that. She denies dizziness or fatigue. - Plan Plan:: Discharge today when baby is 24 hours old. I have asked nursing staff to assist with her ambulation as she is anemic, and cannot bear weight on right ankle due to prior surgeries from compound fracture. Discharge instructions were reviewed with she and her partner.
[2017-07-20 19:53] VITALS: BP 99/53
--- NOTE | 2017-07-21 10:52 | OR ---
SURGEON: Silva Eaton M.D. DATE OF PROCEDURE: 07/19/2017 PREOPERATIVE DIAGNOSIS: A 39 and 1/7 weeks' intrauterine , elective induction of labor. POSTOPERATIVE DIAGNOSIS: A 39 and 1/7 weeks' intrauterine , elective induction of labor. PROCEDURE: Cytotec and Pitocin induction of labor, artificial rupture of membranes, term spontaneous vaginal delivery. ANESTHESIA: Epidural. ESTIMATED BLOOD LOSS: Less than 300 mL. FINDINGS: Live born male, score 8 and 9, weighing 7 pounds 6 ounces. Perineum was intact. Placenta spontaneous, Schultze intact with 3 vessels. BRIEF HISTORY: This is a 32-year-old female. She is G6, P3-0-2-3. She presented at 39 weeks' gestation. She is a patient of Caterina Sherwood. She has had uncomplicated care; however, her last delivery was 10 years ago. She is group B strep negative. She is morbidly obese. She presented for induction of labor. She received Cytotec, followed by Pitocin. In the evening of 07/18/2017, at approximately 5:00 p.m., she was 5 to 6 cm. Throughout the night, she received Pitocin at a dose of 20 milliunits per minute. By morning she was 7 to 8 cm, 80% effaced, -2 station. Reportedly, rupture of membranes had been performed on 07/18; however, there was a large fore-bag that was ruptured. She did have category heart tones throughout labor, and an intrauterine pressure catheter was placed. In the morning of 07/19/2017, when I assumed care from Dr. Kidd, intrauterine pressure catheter was placed. It showed inadequate contraction pattern; therefore, the Pitocin was halved from 20 milliunits per minute, and continued to increase from there, once she reached 40 milliunits per minute, she felt pressure and was complete. DESCRIPTION OF PROCEDURE: With the patient in dorsal lithotomy position, the patient pushed over a 45- minute time period to a 5+ station, at which time, the head was delivered spontaneously and atraumatically over the perineum with support, with subsequent delivery of the infant's shoulders and body without any difficulty. The infant was bulb suctioned by nose and mouth and handed to the mother in the presence of the nurse attending delivery. The infant is a liveborn male, score 8 and 9, weighing 7 pounds, 6 ounces. After the cord had ceased to pulsate, it was doubly clamped and cut. Cord blood was collected for cord ABGs as well as routine cord blood sampling. At the time of rupture of membranes, there was a clot noted and there was bloody amniotic fluid; therefore, the placenta was sent to Pathology. Upon inspection of the pelvis and perineum, there were no periurethral, vaginal sidewall, cervical, rectal, or perineal lacerations. EBL was less than 300 mL. There were no known complications. Mother and are in LDRP in good condition. TRACEY / STEPHANIE /[id number]
== END 2017-07-20 15:35 | disposition home or self-care (01) | DRG 775 ==
LOC: MW.OBCHECK 05:01 → MW.OB 05:04 → MW.OBCHECK 05:21 → OBSVTOIN 07-19 11:05
PROVIDERS: ADMIT Obstetrics & Gynecology; ATTEND Obstetrics & Gynecology
PROC: 10E0XZZ Delivery of Products of Conception, External Approach (ICD-10-PCS; principal; 2017-07-19)
PROC: 10907ZC Drainage of Amniotic Fluid, Therapeutic from Products of Conception, Via Natural or Artificial Opening (ICD-10-PCS; 2017-07-19)
PROC: 3E033VJ Introduction of Other Hormone into Peripheral Vein, Percutaneous Approach (ICD-10-PCS; 2017-07-19)
PROC: 3E0P7VZ Introduction of Hormone into Female Reproductive, Via Natural or Artificial Opening (ICD-10-PCS; 2017-07-19)
PROC: 10H07YZ Insertion of Other Device into Products of Conception, Via Natural or Artificial Opening (ICD-10-PCS; 2017-07-19)
DX: O99.02 Anemia complicating childbirth (principal); D50.8 Other iron deficiency anemias; Z3A.39 39 weeks gestation of pregnancy; Z37.0 Single live birth; Z88.8 Allergy status to other drugs, medicaments and biological substances
CPT/HCPCS: 36415; 59025; 59409; 82803; 85014; 85018; 85027; 86850; 86900; 86901; 88307; A9270-GY; J2300; J2405; J2590; J3010; J7120

== ENCOUNTER 2019-11-12 10:44 | Emergency (ER) | payer SELFPAY ==
--- NOTE | 2019-11-12 11:12 | EDM.PDOC ---
ED HPI GENERAL MEDICAL PROBLEM - General Chief Complaint: ENT Problem Stated Complaint: EARS HURT NOT FEELING WELL Time Seen by Provider: 11/12/19 10:46 Source of Information: Reports: Patient History Limitations: Reports: No Limitations - History of Present Illness INITIAL COMMENTS - FREE TEXT/NARRATIVE: HISTORY AND PHYSICAL: History of present illness: Patient is a 34-year-old female who presents to the emergency room with complaints of bilateral ear pain, sinus pressure, mucus type drainage from nares x5-6 days. She states "every year around this time usually get a sinus infection". Patient denies any fever, chills, headache, change in vision, syncope or near syncope. Denies any chest pain, back pain, shortness of breath or cough. Denies any GI or symptoms. Patient has been eating and drinking appropriately. She has no concerns of COVID-19, has not been around anyone who is been ill Review of systems: As per history of present illness and below otherwise all systems reviewed and negative. Past medical history: As per history of present illness and as reviewed below otherwise noncontributory. Surgical history: As per history of present illness and as reviewed below otherwise noncontributory. Social history: See social history for further information Family history: As per history of present illness and as reviewed below otherwise noncontrib utory. Physical exam: General: Well developed and well nourished 34-year-old female. Alert and orientated x 3. Nontoxic in appearance and in no acute distress. Vital signs are stable and have been reviewed by me. Nursing notes were reviewed. HEENT: Atraumatic, normocephalic, pupils equal and reactive bilaterally, negative for conjunctival pallor or scleral icterus, mucous membranes moist, bilateral maxillary sinus tenderness with palpation, TMs normal bilaterally, throat clear, neck supple, nontender, trachea midline. No drooling or trismus noted. No meningeal signs. No hot potato voice noted. Lungs: Clear to auscultation, breath sounds equal bilaterally, chest nontender. Normal work of breathing, no accessory muscles used. Heart: S1S2, regular rate and rhythm without overt murmur Abdomen: Soft, nondistended, nontender. Negative for masses or hepatosplenomegaly. Negative for costovertebral tenderness. Skin: Intact, warm, dry. No lesions or rashes noted. Hematologic: No petechiae or purpra. Mucosa appropriate color and normal nail bed color and refill. Extremities: Atraumatic, moves all extremities per self without difficulty or deficits, negative for cords or calf pain. Neurovascular unremarkable. Neuro: Awake, alert, oriented. Cranial nerves II through XII unremarkable. Cerebellum unremarkable. Motor and sensory unremarkable throughout. Exam nonfocal. Psychiatric: Mood and affect are appropriate. Normal thought process. Answering questions appropriately. Notes: I have spoken with the patient/caregiver and discussed today's findings, in addition to providing specific details for plan of care. The patient is stable for discharge, counseling was provided and we discussed in great detail signs and symptoms that would prompt them to return to the Emergency Department. Medication, follow up and supportive care measures were reviewed and discussed. Voices understanding and is agreeable to plan of care. Denies any further questions or concerns at this time. Diagnostics: None Therapeutics: None Prescription: Augmentin Impression: Sinusitis Plan: 1. Today your exam is consistent with a sinus infection. 2. Take the antibiotic as prescribed. You can take [id number] sinus/cold medication. Tylenol and/or ibuprofen as needed for pain management. 3. We encourage you to follow up with your primary care provider and/or recommended specialist in the next few days for re-evaluation and further care/management. If your symptoms should worsen, new symptoms develop or any of the signs and symptoms we discussed should arise please return to the emergency room or call 911 (if needed). Definitive disposition and diagnosis as appropriate pending reevaluation and review of above. - Related Data Allergies Allergy/AdvReac Type Severity Reaction Status Date / Time butalbital Allergy chest pain Verified 01/26/18 08:17 and SOB tramadol Allergy chest pain Verified 01/26/18 08:17 and SOB watermelon Allergy Hives Verified 01/26/18 08:17 Home Meds: Home Meds Pnv No.95/Ferrous Fum/Folic AC [ Tablet] 1 tab PO DAILY 05/25/17 [History] Acetaminophen [Tylenol] 325 mg PO Q4H PRN 06/29/17 [History] Amoxicillin/Clavulanate K [Augmentin 875-125 MG] 1 tab PO BID 10 Days #20 tablet 11/12/19 [Rx] Past Medical History - Past Health History Medical/Surgical History: Denies Medical/Surgical History HEENT History: Reports: None Cardiovascular History: Reports: None Respiratory History: Reports: Asthma Gastrointestinal History: Reports: Cholelithiasis Genitourinary History: Reports: None PHYSICIAN RELATIONS SPECIALIST History: Reports: Musculoskeletal History: Reports: Fracture Neurological History: Reports: Concussion, Migraines Psychiatric History: Reports: Anxiety, Depression Endocrine/Metabolic History: Reports: Obesity/BMI 30+ Hematologic History: Reports: None Immunologic History: Reports: None Oncologic (Cancer) History: Reports: None Dermatologic History: Reports: None - Infectious Disease History Infectious Disease History: Reports: Chicken Pox - Past Surgical History GI Surgical History: Reports: Cholecystectomy Musculoskeletal Surgical History: Reports: ORIF, Other (See Below) Other Musculoskeletal Surgeries/Procedures:: right ankle surgery Dermatological Surgical History: Reports: Skin Graft Social & Family History - Family History Family Medical History: Noncontributory HEENT: Reports: Other (See Below) Other HEENT Family History: grandmother had surgery on eye for unkown reason Cardiac: Reports: High Cholesterol, Hypertension Respiratory: Reports: None GI: Reports: None : Reports: None OBGYN: Reports: Ectopic , Musculoskeletal: Reports: Arthritis, Fibromyalgia Neurological: Reports: Alzheimers Disease, Migraines Psychiatric: Reports: None Endocrine/Metabolic: Reports: Diabetes, Type I Hematologic: Reports: None Immunologic: Reports: None Dermatologic: Reports: None Oncologic: Reports: Cervix - Caffeine Use Caffeine Use: Reports: None ED ROS ENT - Review of Systems Review Of Systems: Comprehensive ROS is negative, except as noted in HPI. ED EXAM, ENT - Physical Exam Exam: See Below (See dictation) Departure - Departure Time of Disposition: 11:12 Disposition: Home, Self-Care 01 Clinical Impression: Sinusitis Qualifiers: Sinusitis location: maxillary Chronicity: acute Recurrence: non-recurrent Qualified Code(s): J01.00 - Acute maxillary sinusitis, unspecified - Discharge Information Prescriptions: Amoxicillin/Clavulanate K [Augmentin 875-125 MG] 1 tab PO BID 10 Days #20 tablet Instructions: Sinusitis, Adult, [id number] Referrals: Dallin Singleton MD [Primary Care Provider] - Forms: ED Department Discharge Additional Instructions: The following information is given to patients seen in the emergency department who are being discharged to home. This information is to outline your options for follow-up care. We provide all patients seen in our emergency department with a follow-up referral. The need for follow-up, as well as the timing and circumstances, are variable depending upon the specifics of your emergency department visit. If you don't have a primary care physician on staff, we will provide you with a referral. We always advise you to contact your personal physician following an emergency department visit to inform them of the circumstance of the visit and for follow-up with them and/or the need for any referrals to a consulting specialist. The emergency department will also refer you to a specialist when appropriate. This referral assures that you have the opportunity for follow-up care with a specialist. All of these measure are taken in an effort to provide you with optimal care, which includes your follow-up. Under all circumstances we always encourage you to contact your private physician who remains a resource for coordinating your care. When calling for follow-up care, please make the office aware that this follow-up is from your recent emergency room visit. If for any reason you are refused follow-up, please contact the [facility] Emergency Department at and asked to speak to the emergency department charge nurse. [facility] [address] [place], [place] [id number] [address] [address] Thank you for choosing the [facility] emergency department in [place] for your medical needs today. It was a pleasure caring for you. Today you were seen in the emergency department for sinusitis. 1. Today your exam is consistent with a sinus infection. 2. Take the antibiotic as prescribed. You can take [id number] sinus/cold medication. Tylenol and/or ibuprofen as needed for pain management. 3. We encourage you to follow up with your primary care provider and/or recommended specialist in the next few days for re-evaluation and further care/management. If your symptoms should worsen, new symptoms develop or any of the signs and symptoms we discussed should arise please return to the emergency room or call [phone] (if needed).
[2019-11-12 11:24] VITALS: BP 126/59; PULSE 87
== END 2019-11-12 11:25 | disposition home or self-care (01) ==
LOC: MW.ED 10:44
DX: J01.00 Acute maxillary sinusitis, unspecified (principal); J45.909 Unspecified asthma, uncomplicated; E66.9 Obesity, unspecified; Z68.42 Body mass index [BMI] 45.0-49.9, adult; Z88.5 Allergy status to narcotic agent; Z91.018 Allergy to other foods
CPT/HCPCS: 99282; 99283

== ENCOUNTER 2023-10-16 20:48 | Emergency (ER) | payer SELFPAY ==
[2023-10-16] MEDS: Lidocaine 1% 5 ML VIAL INJECT ONE (21:06)
[2023-10-16] MEDS: Diphtheria,Pertussis(Acell),Tetanus Vaccine 0.5 ML Syringe IM ONE (21:34)
[2023-10-16] MEDS: Ibuprofen 600 MG Tab PO ONE (22:03)
[2023-10-16 22:09] VITALS: BP 110/60; PULSE 85
== END 2023-10-16 22:07 | disposition home or self-care (01) ==
LOC: MW.ED 20:48
DX: S61.211A Laceration without foreign body of left index finger without damage to nail, initial encounter (principal); S61.213A Laceration without foreign body of left middle finger without damage to nail, initial encounter; S61.215A Laceration without foreign body of left ring finger without damage to nail, initial encounter; Z23 Encounter for immunization; E66.9 Obesity, unspecified; Z68.44 Body mass index [BMI] 60.0-69.9, adult; Z91.018 Allergy to other foods; Z88.8 Allergy status to other drugs, medicaments and biological substances; Z79.899 Other long term (current) drug therapy; Z90.49 Acquired absence of other specified parts of digestive tract; Z75.8 Other problems related to medical facilities and other health care; W26.8XXA Contact with other sharp object(s), not elsewhere classified, initial encounter
CPT/HCPCS: 12002; 90471; 90715; 99282; A9270; 99283; J3490

== ENCOUNTER 2023-11-09 22:41 | Emergency (ER) | payer SELFPAY ==
[2023-11-09 23:05] LABS: BASOPHILS ABSOLUTE AUTO 0.04 K/uL (0.00-0.20); BASOPHILS PERCENT AUTO 0.7 % (0.0-1.0); EOSINOPHILS ABSOLUTE AUTO 0.06 K/uL (0.00-0.45); HEMATOCRIT 31.2 % (37.0-47.0); HEMOGLOBIN 8.7 g/dL (12.0-16.0); IMMATURE GRAN ABSOLUTE AUTO 0.01 K/uL (0.00-0.05); IMMATURE GRAN PERCENT AUTO 0.2 % (0.0-0.4); LYMPHOCYTES ABSOLUTE AUTO 1.92 K/uL (1.00-4.80); LYMPHOCYTES PERCENT AUTO 32.2 % (24.0-44.0); MEAN CORPUSCULAR HEMOGLOBIN 17.5 pg (28.0-32.0); MEAN CORPUSCULAR HGB CONC 27.9 g/dL (32.0-36.0); MEAN CORPUSCULAR VOLUME 62.9 fL (83.0-99.0); MEAN PLATELET VOLUME 9.3 fL (9.4-12.3); MONOCYTES ABSOLUTE AUTO 0.55 K/uL (0.00-0.80); MONOCYTES PERCENT AUTO 9.2 % (0.0-8.0); NEUTROPHILS ABSOLUTE AUTO 3.38 K/uL (1.80-7.70); NEUTROPHILS PERCENT AUTO 56.7 % (41.0-71.0); PLATELET COUNT,PLT 344 K/uL (150-400); RED BLOOD CELL COUNT 4.96 M/uL (4.10-5.30); WHITE BLOOD CELL COUNT,WBC 5.96 K/uL (3.9-11.3)
[2023-11-09] MEDS: Ondansetron 4 MG/2 ML SDV IVPUSH ONE (23:08)
[2023-11-09] MEDS: Sodium Chloride 0.9% 1,000 ML IV ONE (23:08)
[2023-11-09 23:16] LABS: BILIRUBIN,URINE NEGATIVE (NEGATIVE); COLOR,URINE YELLOW; GLUCOSE,URINE NEGATIVE (NEGATIVE); KETONES,URINE 15 mg/dL (NEGATIVE); LEUKOCYTE ESTERASE,URINE NEGATIVE (NEGATIVE); NITRITE,URINE POSITIVE (NEGATIVE); OCCULT BLOOD,URINE NEGATIVE (NEGATIVE); PROTEIN,URINE NEGATIVE (NEGATIVE); UROBILINOGEN,URINE 0.2 EU/dL (<2.0)
[2023-11-09 23:23] LABS: A/G RATIO 0.9 (0.9-1.6); ALBUMIN 3.8 g/dL (3.4-5.0); CARBON DIOXIDE,CO2 24.4 mmol/L (21.0-32.0); CREATININE 0.8 mg/dL (0.6-1.0); EST CRCL DRUG DOSING (CG) 77.33 mL/min; POTASSIUM,K 3.2 mmol/L (3.5-5.1); PROTEIN TOTAL,TP 8.1 g/dL (6.4-8.2)
[2023-11-09 23:24] LABS: APPEARANCE,URINE SLT CLOUDY; EPITHELIAL CELLS,URINE MODERATE (NONE-FEW); RBC,URINE 0-1 (0-2/HPF)
[2023-11-09 23:25] LABS: BACTERIA,URINE MANY (NEGATIVE)
[2023-11-09 23:47] VITALS: BP 143/69; PULSE 84
[2023-11-10] MEDS: Acetaminophen 500 MG Tab PO ONE (00:03)
[2023-11-10] MEDS: Ketorolac 30 MG/ML SDV IVPUSH ONE (00:04)
== END 2023-11-10 00:19 | disposition home or self-care (01) ==
LOC: MW.ED 22:41
DX: A08.4 Viral intestinal infection, unspecified (principal); E66.9 Obesity, unspecified; Z79.899 Other long term (current) drug therapy; Z88.8 Allergy status to other drugs, medicaments and biological substances; Z88.5 Allergy status to narcotic agent; Z91.018 Allergy to other foods; Z68.41 Body mass index [BMI] 40.0-44.9, adult
CPT/HCPCS: 36415; 80053; 81001; 84703; 85025; 87635; 96361; 96374; 96375; 99284; A9270; J1885; J2405; J7030; U0002